=== PATIENT | female | born 1995 | race American Indian/Alaskan Native ===

== ENCOUNTER 2016-08-14 16:48 | Outpatient (CLI) | payer MEDICAID ==
[2016-08-14] MEDS ORDERED: LACTATED RINGERS 500 ML IV ONE (16:52)
[2016-08-14 17:02] VITALS: BP 110/59
[2016-08-14 17:59] LABS: Bacteria,Urine 2+ /HPF (Negative); Bilirubin,Urine NEG (Negative); Blood,Urine SM (Negative); Ketones,Urine NEG (Negative); Leukocyte Esterase,Urine LG (Negative); Nitrite,Urine NEG (Negative); Protein,Urine <15 mg/dL mg/dL (Negative); Urobilinogen,Urine < 2.0 mg/dL (<2.0)
--- NOTE | 2016-08-15 08:25 | Ultrasound Report ---
BIOPHYSICAL PROFILE: INDICATION: BPP, placenta scan. COMPARISON: None similar at this institution. TECHNIQUE: Transabdominal ultrasound with Doppler interrogation. 2 - breathing movements 2 - movements 2 - posture and tone 2 - Qualitative amniotic fluid volume 8 - TOTAL SCORE OF POSSIBLE 8 Heart Rate (bpm) 149
--- NOTE | 2016-08-15 08:33 | Ultrasound Report ---
OB LIMITED INDICATION: BPP, placenta scan. COMPARISON: None similar. TECHNIQUE: Transabdominal grayscale ultrasound with Doppler interrogation. Gestation: [place] Position: Cephalic Placenta: Anterior; no evidence of abruption. Placental Grade: I Heart Rate: 149 BPM
== END 2016-08-14 19:00 | disposition home or self-care (01) ==
LOC: TRG 16:48
PROVIDERS: ATTEND Obstetrics & Gynecology
DX: O47.03 False labor before 37 completed weeks of gestation, third trimester (principal); Z3A.30 30 weeks gestation of pregnancy; Z87.891 Personal history of nicotine dependence
CPT/HCPCS: 59025; 76815; 76819; 81001

== ENCOUNTER 2016-09-25 17:27 | Outpatient (CLI) | payer MEDICAID ==
[2016-09-25 17:58] VITALS: BP 125/72
[2016-09-25 18:18] LABS: Bacteria,Urine 4+ /HPF (Negative); Bilirubin,Urine NEG (Negative); Blood,Urine SM (Negative); Ketones,Urine NEG (Negative); Leukocyte Esterase,Urine LG (Negative); Nitrite,Urine NEG (Negative); Protein,Urine <15 mg/dL mg/dL (Negative); Urobilinogen,Urine < 2.0 mg/dL (<2.0)
[2016-09-25] MEDS ORDERED: LACTATED RINGERS 500 ML IV ONE (19:07)
== END 2016-09-25 19:45 | disposition home or self-care (01) ==
LOC: TRG 17:27
PROVIDERS: ATTEND Obstetrics & Gynecology
DX: O47.03 False labor before 37 completed weeks of gestation, third trimester (principal); Z3A.36 36 weeks gestation of pregnancy
CPT/HCPCS: 59025; 81001; 87086